=== PATIENT | female | born 1990 | race Caucasian/White ===

== ENCOUNTER 2017-02-04 13:21 | Inpatient (IN) ==
[2017-02-04] MEDS ORDERED: METHYLERGONOVINE 0.2 MG/ML INJECTION IM PRN (17:07)
[2017-02-04] MEDS ORDERED: ZOLPIDEM 5 MG TABLET PO PRN (17:07)
[2017-02-04] MEDS ORDERED: ACETAMINOPHEN 500 MG TABLET PO PRN (17:07)
[2017-02-04] MEDS ORDERED: MAG-AL + SIM ORAL LIQUID 30ml PO PRN (17:07)
[2017-02-04] MEDS ORDERED: CALCIUM CARBONATE Chewable 500mg TABLET PO PRN (17:07)
[2017-02-04] MEDS ORDERED: CARBOPROST 250 MCG/ML INJECTION IM PRN (17:07)
[2017-02-04] MEDS: SALINE FLUSH 10ml SYRINGE IVF PRN ×2 (17:20→17:53)
[2017-02-04] MEDS: LR 1,000 ML IV PRN (17:38)
[2017-02-04 17:58] VITALS: BMI 35.6
[2017-02-04] MEDS: HYDROCODONE/APAP 5mg/325mg TABLET PO PRN (19:34)
[2017-02-05] MEDS ORDERED: OXYTOCIN DRIP 30 UNIT/500 ML ML IV PRN (05:00)
[2017-02-05] MEDS: LR 1,000 ML IV PRN ×2 (05:09→13:41)
[2017-02-05] MEDS: D5LR 1,000 ML IV PRN ×2 (05:51→14:45)
--- NOTE | 2017-02-05 12:07 | Anesthesia Preoperative Report ---
Anesthesia Epidural/Spinal Rec - Date and Time Date: 02/05/17 Procedure: Labor Epidural Plan: Epidural - Vital Signs Vital Signs: Pulse Rate 80 02/04/17 17:07 Respiratory Rate 20 02/04/17 17:07 Blood Pressure 138/93 H 02/04/17 17:07 NPO since: 0600 /Para: P:0 Heart Rate: 144 - Medictaions & Allergies Inpatient Medications: Current Medications Acetaminophen (Tylenol) 500 - 1,000 mg PO Q4H PRN PRN Reason: Pain Acetaminophen/Hydrocodone Bitart ([place] 5/325) 1 - 2 tab PO Q4H PRN PRN Reason: Pain Last Admin: 02/04/17 19:34 Dose: 2 tab Al Hydroxide/Mg Hydroxide (Maalox Plus) 30 ml PO Q3H PRN PRN Reason: Indigestion Calcium Carbonate (Tums) 500 - 1,000 mg PO Q2H PRN PRN Reason: Indigestion Carboprost Tromethamine (Hemabate) 250 mcg IM O PRN PRN Reason: .Downtime Lactated Ringer's (Lactated Ringers) 1,000 mls @ 1,000 mls/hr IV .Q1H PRN PRN Reason: as directed Last Admin: 02/05/17 05:09 Dose: 1,000 mls/hr Dextrose/Lactated Ringer's (Dextrose 5%-Lactated Ringers) 1,000 mls @ 125 mls/ hr IV .Q8H PRN PRN Reason: Labor Last Admin: 02/05/17 05:51 Dose: 125 mls/hr Oxytocin (Pitocin Drip) 30 unit in 500 mls @ 2 mls/hr IV .Q24H PRN; Protocol PRN Reason: Induction/Augmentation Last Admin: 02/05/17 05:50 Dose: 2 mls/hr Methylergonovine Maleate (Methergine) 0.2 mg IM O PRN Misoprostol (Cytotec) 800 mcg NH ONCE PRN Sodium Chloride (Iv Flush) 10 - 80 ml IVF PRN PRN PRN Reason: Flushing Last Admin: 02/04/17 17:53 Dose: 30 ml Zolpidem Tartrate (Ambien) 5 mg PO O PRN PRN Reason: Insomnia Last Admin: 02/04/17 22:29 Dose: 5 mg Allergies/Adverse Reactions: Allergies Allergy/AdvReac Type Severity Reaction Status Date / Time No Known Allergies Allergy Verified 02/03/17 11:30 - Home Medications Home Medications: Home Medications Medication Instructions Recorded Confirmed Type Iron 02/03/17 History Vitamins 02/03/17 History - Medical History Cardiovascular: Reports: Hypertension (PIH ) Gastrointestional: Reports: Morbid Obesity (obesity) - Surgical History Anesthesia Reactions: None Hx Family Anesthesia Reaction: No History of Motion Sickness: No - Social History Second Hand Exposure: No Substance Use Type: does not use Alcohol Intake Frequency: does not drink Hx Chewing Tobacco Use: No - Pertinent Findings Lab Data: CBC and BMP 02/04/17 17:23 02/04/17 17:23 BMP 02/04/17 17:23 Sodium 141 Potassium 3.6 Chloride 111 H Carbon Dioxide 18 L BUN 7.0 Creatinine 0.5 L Glucose 125 H Calcium 9.1 Liver Function 02/04/17 Range/Units 17:23 Total Bilirubin 0.40 (0.20-1.30) MG/DL AST 24 (14-36) U/L ALT 37 (9-52) U/L Alkaline Phosphatase 141 H (38-126) U/L Albumin 3.4 L (3.5-5.0) G/DL - Physical Exam Respiratory Exam: lungs clear Cardiovascular Exam: regular rate and rhythm - Airway Assessment Mallampati Score: II TMD: 3 Fingerbreadths Neck Extension: good Overall Assessment: no airway concerns - ASA ASA Score: 2 - Discussion Discussion: Discussed risks/options/alternatives of anesthesia and questions answered. Patient consents. Nursing pain assessment noted. Anesthesia Discussion: family member Attestation Statement: Prior to the delivery of any anesthetic medication, I examined the patient, developed the plan, obtained the patient's consent and discussed the risk and benefits of the procedure with the patient/guardian.
[2017-02-05] MEDS ORDERED: ROPIVACAINE 1% 10MG/ML INJ 200 MG, SUFentanil 50 MCG in NS 100 ML EPI PRN (15:00)
[2017-02-05] MEDS ORDERED: ONDANSETRON 4 MG/2 ML INJECTION IVP PRN (15:00)
[2017-02-05] MEDS ORDERED: NALOXONE 0.4 MG/ML INJECTION IVP PRN (15:00)
[2017-02-05] MEDS ORDERED: DiphenhydrAMINE 50 MG/ML INJECTION IVP PRN (15:00)
[2017-02-05] MEDS ORDERED: FAMOTIDINE PB 20 MG/50 ML BAG IV ONE (18:34)
[2017-02-05] MEDS ORDERED: CITRIC ACID/SODIUM CITRATE 30ml PO ONE (18:34)
[2017-02-05] MEDS ORDERED: CEFAZOLIN PREMIX (MC ONLY) 2 GM/50 ML BAG IV ONE (18:34)
--- NOTE | 2017-02-05 18:47 | Progress Note ---
OB PP Progress Note Free Text - Date Date: 02/05/17 - Progress Note Progress Note: Cervix remains 580/-2. Above adequate contractions by IUPM. FHTs remain reassuring. I have recommended for failure to progress. We have discussed the potential risks of surgery and options to it. Gerry has asked appropriate questions and agrees with progressing to .
[2017-02-05] MEDS ORDERED: TRANEXAMIC ACID 1,000 MG in NS 100 ML IV ONE (18:56)
[2017-02-05] MEDS ORDERED: LIDOCAINE 1.5% W/EPI 1:200,000 30ml SDV PF ONE (19:27)
[2017-02-05] MEDS ORDERED: ONDANSETRON 4 MG/2 ML INJECTION ONE (19:27)
[2017-02-05] MEDS ORDERED: BUPIVACAINE 0.25% (2.5mg/ml) PF 30ml INJECTION ONE (19:28)
[2017-02-05] MEDS ORDERED: BUPIVACAINE 0.25% (2.5mg/ml) PF 30ml INJECTION ID ONE (19:29)
[2017-02-05] MEDS ORDERED: OXYTOCIN DRIP 30 UNIT/500 ML ML IV SCH (19:45)
[2017-02-05] MEDS ORDERED: DiphenhydrAMINE 50 MG/ML INJECTION ONE (19:56)
[2017-02-05] MEDS ORDERED: MORPHINE SULFATE PF 5mg/10ml INJ (Duramorph) ONE (19:56)
[2017-02-05] MEDS ORDERED: SALINE FLUSH 10ml SYRINGE IVF PRN (20:11)
[2017-02-05] MEDS ORDERED: ACETAMINOPHEN 500 MG TABLET PO PRN (20:11)
[2017-02-05] MEDS ORDERED: DiphenhydrAMINE 25 MG CAPSULE PO PRN (20:11)
[2017-02-05] MEDS ORDERED: CALCIUM CARBONATE Chewable 500mg TABLET PO PRN (20:11)
[2017-02-05] MEDS ORDERED: HYDROCORTISONE 2.5% CREAM 30gm RECTALLY PRN (20:11)
[2017-02-05] MEDS: OXYTOCIN DRIP 30 UNIT/500 ML ML IV SCH (20:25)
[2017-02-05] MEDS ORDERED: NALOXONE 2 MG/2 ML INJECTION PFS IVP PRN (20:38)
[2017-02-05] MEDS: D5LR 1,000 ML IV SCH (21:00)
[2017-02-05] MEDS: IBUPROFEN 800 MG TABLET PO PRN (22:13)
[2017-02-05] MEDS: SIMETHICONE 80 MG CHEWABLE TABLET PO SCH (22:55)
[2017-02-05] MEDS: HYDROCODONE/APAP 5mg/325mg TABLET PO PRN (22:55)
[2017-02-06] MEDS: OXYTOCIN DRIP 30 UNIT/500 ML ML IV SCH (01:44)
[2017-02-06] MEDS: D5LR 1,000 ML IV SCH (03:00)
--- NOTE | 2017-02-06 07:02 | Anesthesia Postoperative Note ---
- Date and Time Date: 02/06/17 Time: 07:02 - Status Patient Participated in Evaluation: Patient Participated in Person Vital Signs: Temperature 98.7 F 02/06/17 05:00 Pulse Rate 88 02/06/17 05:00 Respiratory Rate 20 02/06/17 05:00 Blood Pressure 145/92 H 02/06/17 05:00 Pulse Oximetry 100 02/06/17 05:00 Oxygen Delivery Method Room Air Respiratory Function: Airway Patent Cardiovascular Function: Regular Pulse EKG Rhythm: Normal Sinus Rhythm Mental Status: Alert and Oriented Hydration: Taking PO Fluids Complications During Recover: None Apparent - Follow-Up Instructions Instructions: Per Surgeon
[2017-02-06] MEDS: SIMETHICONE 80 MG CHEWABLE TABLET PO SCH ×2 (08:52→13:05)
[2017-02-06] MEDS: IBUPROFEN 800 MG TABLET PO PRN ×2 (08:52→18:10)
[2017-02-06] MEDS: DOCUSATE CALCIUM 240 MG CAPSULE PO SCH (08:53)
--- NOTE | 2017-02-06 10:42 | Operative Note ---
DATE OF OPERATION 02/05/2017 PREOPERATIVE DIAGNOSIS 1. Term . 2. Preeclampsia with mild features. 3. Failure to progress. POSTOPERATIVE DIAGNOSIS 1. Term . 2. Preeclampsia with mild features. 3. Failure to progress. 4. Delivered. PROCEDURES Primary low transverse section. SURGEON Cecilia Salgado MD LINK MACHINE OPERATOR Danish Rutherford, Sample Grinder ANESTHESIA Continuous epidural TALENT DIRECTOR Pete Ramos, ALIDA EBL 600 mL DESCRIPTION OF PROCEDURE Ms. Hodgson was brought to the OR and placed on the OR table in the comfortable supine position with left lateral displacement. A Kowalski catheter had previously been placed to dependent drain. The abdomen was prepped and draped in the usual sterile fashion. The patient's epidural was a little slow to rise , although she did well with the Allis test. I infiltrated along the Pfannenstiel line with dilute Marcaine. We then made a Pfannenstiel incision with a sharp knife. This was carried down to fascia. Fascia was incised transversely. This was tented up. It was bluntly and sharply dissected free of the rectus muscles. Rectus muscles were bluntly divided. The peritoneum was tented up. This was sharply entered, then extended vertically. The bladder blade was inserted. Vesicouterine fold of peritoneum was tented up and incised transversely. A bladder flap was then bluntly created and bladder flap blade reinserted. A low transverse uterine incision was made with a sharp knife. There was clear amniotic fluid. head was delivered with a loose nuchal cord x1 that was reduced. However, there was quite a bit of shoulder dystocia and the baby was a little difficult to deliver. Upon delivery, baby was further bulb suctioned. Cord was doubly clamped and baby was given to Dr. Tran and his team for care. This is a liveborn female with Apgars of 6/7/9, weighing 7 pounds 9 ounces. The placenta was then manually removed intact. It had a normal configuration and normal-appearing three vessel cord. The uterine cavity was swept clear of membranes and the uterus exteriorized. The myometrial incision was reapproximated with a running locking 0 Monocryl. There was an area on the right that continued to bleed a bit. This was grasped with a right angle clamp and secured with a [id number] suture of 2-0 chromic. We inspected carefully for hemostasis. It was under good control. Uterus, tubes and ovaries were noted to be grossly normal and were returned to the abdominal cavity. We reinspected for hemostasis. It remained under good control throughout the rest of the procedure. We then closed the peritoneum with a running nonlocking 2-0 Vicryl. Fascia was reapproximated with running nonlocking 0 Vicryl. Skin edges reapproximated with subcuticular style 3-0 undyed Vicryl. The wounds dressed with Steri-Strips and sterile dressing. Counts were correct postoperatively x2. The urine remained clear and free- flowing throughout the procedure. Ms. Hodgson is being transferred to recovery in stable condition. ASHLEY
--- NOTE | 2017-02-06 12:14 | OB/GYN Progress Note ---
OB-PP Progress Note - General PPD1 Maternal Group B Strep: Negative Maternal blood type: O+ Maternal Rubella Status: Immune - Subjective Date: 02/06/17 Lochia: Minimal Pain: contolled Voiding: voiding Nausea or Vomiting Present: No - Objective Vital Signs: Last Vital Signs Temp 98.3 F 02/06/17 09:00 Pulse 98 02/06/17 09:00 Resp 20 02/06/17 09:00 BP 140/91 H 02/06/17 09:00 Pulse Ox 100 02/06/17 09:00 Urine Output: good General: alert and oriented Abdomen: non-tender Incision: dressed Extremities: non-tender Side: bilateral Edema Degree: 2+ Laboratory: Laboratory Results - last 24 hr 02/06/17 06:05 WBC 18.4 H RBC 3.42 L Hgb 10.2 L D Hct 30.1 L D MCV 88.0 MCH 29.8 MCHC 33.9 RDW Std Deviation 43.3 Plt Count 172 MPV 11.2 - Assessment Assessment: SP, Primary C/S, Gestational HTN - Plan Plan: routine care
[2017-02-06] MEDS: HYDROCODONE/APAP 5mg/325mg TABLET PO PRN ×2 (18:12→23:15)
[2017-02-06] MEDS: SIMETHICONE 80 MG CHEWABLE TABLET PO PRN ×2 (19:51→23:15)
[2017-02-07] MEDS: IBUPROFEN 800 MG TABLET PO PRN ×3 (04:27→23:19)
[2017-02-07] MEDS: HYDROCODONE/APAP 5mg/325mg TABLET PO PRN ×5 (04:27→23:20)
[2017-02-07] MEDS: DOCUSATE CALCIUM 240 MG CAPSULE PO SCH (09:51)
[2017-02-07] MEDS: SIMETHICONE 80 MG CHEWABLE TABLET PO PRN (09:51)
--- NOTE | 2017-02-07 10:45 | Progress Note ---
OB PP Progress Note Free Text - Date Date: 02/07/17 - Progress Note Progress Note: vss af no c/o cont routine post op care anticipate dc tomorrow q&a
[2017-02-08] MEDS: HYDROCODONE/APAP 5mg/325mg TABLET PO PRN (05:31)
[2017-02-08 07:52] VITALS: BP 137/92; PULSE 88; RESP 16; TEMP 97.6; O2SAT 98
--- NOTE | 2017-02-08 11:16 | OB/GYN Progress Note ---
OB-Progress Note Free Text - Date Date: 02/08/17 - Progress Note Progress Note: doing ok plan dc today incision c/d/i bp's still slightly elevated but not high enough to treat. dc instructions reviewed f/u appt made q&a-krb
--- NOTE | 2017-02-08 11:21 | Discharge Instructions ---
Discharge Plan - Med Rec/Dispo Referrals/Follow Up: Cecilia Salgado MD [Physician] - 2 Weeks Prescriptions: New Docusate Calcium [Surfak] 240 mg PO DAILY capsule Hydrocodone/APAP 5/325 [[place] 5/325] 1 - 2 tab PO Q4H PRN #30 tablet PRN Reason: Pain Ibuprofen [Motrin] 800 mg PO Q8H PRN tablet PRN Reason: Pain Milk of Magnesia [Mom] 30 ml PO HS PRN udc PRN Reason: Constipation Continue Vitamins Iron - Disposition 01 Discharged Home, Self-Care
== END 2017-02-08 13:00 | disposition home or self-care (01) | DRG 766 ==
LOC: MC 17:05
PROVIDERS: ADMIT Obstetrics & Gynecology; ATTEND Obstetrics & Gynecology